=== PATIENT | male | born 1935 | race Caucasian/White ===

== ENCOUNTER → 2016-12-21 | Outpatient (CLI) | payer OTHER ==
[~2016-12-21] VITALS: Ht 175.3 cm; Wt 78.0 kg
[~2016-12-21] MED LIST: ASPIR 8181 MG PO; CARBIDOPA-LEVO1 EAC9 PO; CENTRUM SILVER1 EAC2 PO; CRESTOR10 MG PO; FLUOROMETHOLONE15 ML OP; MIRALAX17 GM PO; NEURONTIN 300300 M1 PO; PEPCID20 MG PO; PEPCID40 MG PO; PRAMIPEXOLE0.125 MG PO; TOPROL XL25 MG PO; TUMS PO; VENTOLIN HFA 1818 GM INH; VITAMINC500 PO
--- NOTE | ~2016-12-21 | P ---
[facility] [place] [address] PROCEDURE REPORT Name: CAITY ORTIZ Room #: REG Shikha Jessie#: [id number] Admission: 12/21/16 Attend Phys: Leonid Loo MD Discharge: Date of : 37 Report #: [id number] THIS REPORT FOR: //name// CC: Leonid Mcgovern DO DATE OF SERVICE: 12/21/2016 BRIEF HISTORY: The patient is an 81-year-old male who has a history of nocturnal regurgitation and questionably some regurgitation of brownish material. He brings in a T-shirt today with a brownish material on it. He does have a history of Parkinson disease. He has had previous evaluation and treatment for reflux and he is currently taking famotidine 20 mg twice daily. He is not using a PPI at this time. He denies dysphagia in spite of the fact that he has Parkinson disease. In addition, he does complain of hoarseness, which is intermittent but fairly common. PREOPERATIVE DIAGNOSIS: Hoarseness and suspected reflux disease. POSTOPERATIVE DIAGNOSIS: Moderate diffuse gastritis. MEDICATIONS: Deep sedation with propofol per anesthesia. SPECIMEN: None. ESTIMATED BLOOD LOSS: None. PROCEDURE: EGD. FINDINGS: Prior to propofol sedation, procedure of upper endoscopy discussed with the patient as well as potential risks and its complications. He indicates he understands and desires to proceed. DESCRIPTION OF PROCEDURE: With the patient in left lateral decubitus position, the Fuji video endoscope was inserted in the cervical esophagus under direct vision without difficulty. Examination of this organ to its entire length revealed normal esophageal mucosa down to the squamocolumnar junction. Squamocolumnar junction was inspected. I did not see any ulcers, erosions or Graves mucosa. A significant hiatus hernia was not seen. Scope was advanced into the stomach, which was examined on end view as well as retroflexed views. He is noted to have a diffuse erythematous gastritis. This had been noted in the past. Previous biopsies for H. pylori in the past were negative. Upon retroflexion, no mass lesions were seen. Hiatus hernia was not seen. Bleeding [facility] [address] [place] [address] PROCEDURE REPORT Name: CAITY ORTIZ Room #: REG [facility]#: [id number] Admission: 12/21/16 Attend Phys: Leonid Loo MD Discharge: Date of : 37 Report #: [id number] lesions were not seen. The pylorus, duodenal bulb and postbulbar duodenal sweep were inspected and noted to be within normal limits. At that point, the scope was slowly withdrawn and careful circumferential views were obtained. The patient tolerated the procedure well. CONDITION OF THE PATIENT UPON DISCHARGE: Following the procedure, the patient drowsy and will be discharged home when fully ambulatory. INSTRUCTIONS TO THE PATIENT AND FAMILY AT THE TIME OF DISCHARGE: I do not see endoscopic evidence of esophagitis or reflux disease. I do not see hiatus hernia. However, the patient's symptoms are certainly consistent with a possibility of reflux disease. He has been on proton pump inhibitors in the past. He is currently taking only famotidine. At this point in time, we will place him on omeprazole 40 mg twice daily. He may continue to use famotidine and at bedtime dosage would be reasonable in addition to the twice daily omeprazole. He should return to see me in followup in the office in about 6 weeks or so to monitor his progress. There was some discussion and notes in the past of him seeing an ENT doctor. I do not believe that that was ever done. If he continues to have problems with hoarseness, ENT evaluation may be indicated. <ELECTRONICALLY SIGNED> By: Leonid Loo MD 12/23/16 [id number] Leonid Loo MD /nt
== END | disposition home or self-care (01) ==
LOC: GI 07:15
DX: K29.70 Gastritis, unspecified, without bleeding (principal); K21.9 Gastro-esophageal reflux disease without esophagitis; G20 Parkinson's disease; I25.2 Old myocardial infarction; I10 Essential (primary) hypertension; J45.909 Unspecified asthma, uncomplicated; Z98.41 Cataract extraction status, right eye; Z98.42 Cataract extraction status, left eye; Z96.1 Presence of intraocular lens; Z98.890 Other specified postprocedural states; Z85.828 Personal history of other malignant neoplasm of skin